=== PATIENT | female | born 1940 | race Caucasian/White ===

== ENCOUNTER 2022-10-19 08:45 | Inpatient (IN) ==
[2022-11-09] MEDS ORDERED: Buffered Lidocaine 1% SYRIN 1 ml INTRADERM ONE (06:00)
[2022-11-09] MEDS ORDERED: Lactated Ringers 1000 ml BAG 1,000 ML IV SCH (06:00)
[2022-11-09] MEDS ORDERED: ROPIVACAINE 5 MG/ML 30 ML BTL (0.5%) ONE (06:40)
[2022-11-09] MEDS ORDERED: ceFAZolin 2 GM PREMIX 2 GM/50 ML BAG ONE (08:52)
[2022-11-09] MEDS ORDERED: fentaNYL 100 mcg/2 ml 50 MCG/ML VIAL ONE ×2 (10:47→14:01)
[2022-11-09] MEDS ORDERED: Rocuronium 50 mg VIAL 10 mg/ml 5 ml VIAL (50 mg) ONE (11:28)
[2022-11-09] MEDS ORDERED: Ketamine HCL 50 mg/ml 10 ml VIAL (500 MG) ONE (11:29)
[2022-11-09] MEDS ORDERED: HYDROmorphone 1 MG/1 ML SYRINGE IV PRN (11:48)
[2022-11-09] MEDS ORDERED: Ondansetron 4 mg VIAL 2 MG/ML 2 ml VIAL IV PRN ×2 (11:48→13:53)
[2022-11-09] MEDS ORDERED: Acetaminophen IV 1 GM/100ML 1,000 MG/100 ML BAG IV PRN (11:48)
[2022-11-09] MEDS ORDERED: Naloxone 0.4 mg VIAL 0.4 mg/ml 1 ml VIAL IV PRN (11:48)
[2022-11-09] MEDS ORDERED: Acetaminophen IV 1 GM/100ML 1,000 MG/100 ML BAG IV ONE (11:50)
[2022-11-09] MEDS ORDERED: Dexamethasone IV 4 MG/ML VIAL 1 ml VIAL ONE ×2 (11:50)
[2022-11-09] MEDS ORDERED: Ondansetron 4 mg VIAL 2 MG/ML 2 ml VIAL ONE (11:50)
[2022-11-09] MEDS ORDERED: Propofol 10 MG/ML 20 ML BTL ONE ×2 (12:23)
[2022-11-09] MEDS ORDERED: Phenylephrine IV 10 MG/ML 1 ml VIAL ONE (12:44)
[2022-11-09] MEDS ORDERED: Lactulose 30 ml UDC PO PRN (13:53)
[2022-11-09] MEDS ORDERED: Magnesium Hydroxide LIQ 30 ML UDC PO PRN (13:53)
[2022-11-09] MEDS ORDERED: Ondansetron ODT 4 mg TAB 4 MG TAB PO PRN (13:53)
[2022-11-09] MEDS ORDERED: Morphine 2 MG/ML SYRINGE IV PRN (13:53)
[2022-11-09] MEDS: fentaNYL 100 mcg/2 ml 50 MCG/ML VIAL IV PRN ×4 (14:02→14:52)
[2022-11-09] MEDS: Lactated Ringers 1000 ml BAG 1,000 ML IV SCH (16:03)
[2022-11-09] MEDS: ceFAZolin 1 GM ADVAN 1 GM in NS 0.9% 50 ML 50 ML IVPB SCH (20:08)
[2022-11-09] MEDS: Magnesium Hydroxide LIQ 30 ML UDC PO SCH (22:29)
[2022-11-10] MEDS: Lactated Ringers 1000 ml BAG 1,000 ML IV SCH (02:06)
[2022-11-10] MEDS: ceFAZolin 1 GM ADVAN 1 GM in NS 0.9% 50 ML 50 ML IVPB SCH ×2 (03:51→11:09)
[2022-11-10 07:19] LABS: Hematocrit 34 % (35-47); Hemoglobin 11.4 g/dL (12.0-16.0); Mean Platelet Volume 9.8 fL (7.4-10.4); Platelet Count 127 10^3/uL (150-450)
[2022-11-10 07:37] LABS: Calcium 8.5 mg/dL (8.6-10.3); Creatinine, Serum 0.53 mg/dL (0.51-0.95); Potassium 4.4 mmol/L (3.5-5.0); eGFR CKD-EPI 93.4 (>60)
[2022-11-10] MEDS: DULoxetine DR 30 mg CAP PO SCH (09:10)
[2022-11-10] MEDS: Vitamin THERAPEUTIC TAB PO SCH (09:10)
[2022-11-10] MEDS: Magnesium Hydroxide LIQ 30 ML UDC PO SCH ×2 (09:10→20:34)
[2022-11-11 06:11] LABS: Hematocrit 32 % (35-47); Hemoglobin 10.7 g/dL (12.0-16.0); Mean Platelet Volume 9.5 fL (7.4-10.4); Platelet Count 101 10^3/uL (150-450)
[2022-11-11] MEDS: Magnesium Hydroxide LIQ 30 ML UDC PO SCH (09:28)
[2022-11-11] MEDS: Vitamin THERAPEUTIC TAB PO SCH (09:28)
[2022-11-11] MEDS: DULoxetine DR 30 mg CAP PO SCH (09:29)
[2022-11-11 12:33] VITALS: BP 114/72
== END 2022-11-11 13:28 | disposition home or self-care (01) | DRG 470 ==
LOC: AA 11-09 08:11 → INTOOBSV 11-09 08:11 → SSU 11-09 15:34
PROVIDERS: ADMIT Orthopaedic Surgery Adult Reconstructive Orthopaedic Surgery; ATTEND Orthopaedic Surgery Adult Reconstructive Orthopaedic Surgery